=== PATIENT | female | born 2005 | race Caucasian/White ===

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

== ENCOUNTER 2024-02-26 17:38 | Emergency (ER) | payer MEDICAID, SELFPAY ==
[2024-02-26 17:39] VITALS: BP 140/78; PULSE 64; RESP 16; TEMP 36.1; O2SAT 100; BMI 21.9
--- NOTE | 2024-02-26 18:16 | EDS_ITS ---
HPI HPI - Female History of Present Illness Chief Complaint: Female C/O Narrative Narrative: Patient is a 18-year-old female with past medical history of bipolar disorder, anxiety, depression, personality disorder, seizure who presents to the Emergency Department chief complaint of lower abdominal pain. Patient states that she has a history of ovarian cysts and states that about 3 to 4 hours ago she developed pain over her ovaries. States that she did not take anything prior to evaluation. She states that her pain is currently a 7 out of 10 on each side. Patient denies any previous abdominal surgeries. Patient denies any possibility of as she states that she has a female partner and she has a IUD in place. [facility] Medical History Seizure disorder Personality disorder Bipolar disorder Anxiety and depression Home Medications ?Medication ?Instructions ?Recorded ?Last Taken ?Type propranolol 20 mg tablet 20 mg PO BID 10/03/19 Unknown History trazodone 50 mg tablet 75 mg PO QHS 10/03/19 Unknown History lisdexamfetamine 30 mg capsule 30 mg PO DAILY 03/18/22 Unknown History (Vyvanse) lithium carbonate 450 mg 300 mg PO BID 03/18/22 Unknown History tablet,extended release lamotrigine 25 mg tablet 100 mg PO Q12H 02/06/23 Unknown History Allergy/AdvReac Type Severity Reaction Status Date / Time ethosuximide (From Zarontin) Allergy Rash Verified 02/26/24 17:41 Surgical History History of tonsillectomy Social History Smoking Status: Current some day smoker tobacco type: cigarettes ROS ROS ED ROS Narrative Constitutional: Denies any fevers, chills, headaches, lightness, dizziness Eyes: Denies change in vision double vision blurry vision Cardiovascular: Denies chest pain or palpitations Respiratory: Denies coughing wheezing shortness of breath Abdomen: Complains of lower abdominal pain over her ovaries as noted above denies nausea vomit diarrhea : Denies painful urination, hematuria, polyuria, vaginal discharge Neurological: Denies any numbness, weakness, tingling Musculoskeletal: Denies back pain Skin: Denies rashes or lesions EXAM Physical Exam Narrative Exam Narrative: General: Patient lying in bed rest comfortably did not appear to be acute distress Head: Atraumatic, normocephalic Eyes: PERRL bilaterally, EOMI bilateral, no conjunctival injection noted Neck: Soft, supple, trachea midline Cardiovascular: Regular rate and rhythm Abdomen: Soft, nondistended, mild tenderness palpation over her right and left lower quadrants which is symmetric bilaterally, no rebound or guarding on exam Extremities: +5/5 strength noted in the bilateral upper and lower extremity, radial pulses +2/4 in the bilateral extremities, no pedal edema on exam Neurological: Patient following commands knew that she was at [facility] year is 2024 Skin: Warm, dry, intact no rashes or lesions noted Const Vital Signs: 02/26/24 17:39 02/26/24 19:38 Temperature 96.9 F L Temperature Source Temporal Pulse Rate 64 75 Respiratory Rate 16 18 Blood Pressure 140/78 H Blood Pressure Mean 98 Pulse Ox 100 97 Oxygen Delivery Method Room Air Room Air [facility] Narrative Medical decision making narrative: Patient is a 18-year-old female who presented to the emerged part with chief complaint of ovarian pain that started approximately 3 to 4 hours and she did not take anything for her pain prior to arrival. On the differential diagnose includes but not limited to ovarian cyst, UTI, , ectopic . Once workup is obtained reviewed she will be reevaluated. Patient be given Toradol. Patient CBC reviewed and showed no evidence leukocytosis white blood count normal at 10.4, hemoglobin stable 13.7, platelet count normal at 256. Patient sodium normal at 136, potassium normal at 3.7, creatinine normal at 0.74. Patient's AST and ALT were 11 and 25 respectively normal total bilirubin 0.50. Patient lipase normal at 23. Patient's urinalysis did not show any evidence of infection test was negative. Reevaluation the patient she states that she is having significant pressure still in her lower abdomen bilaterally over her ovaries therefore we will add a ultrasound on. Patient's ultrasound was reviewed which showed normal sonographic appearance of the uterus and endometrium with IUD in normal position. No abnormal fluid collections or abnormal blood flow. Hypoechoic area in the central portion of the right ovary measuring 2.5 x 1.8 x 2.0 cm. Hemorrhagic cyst versus endometrioma are considerations are recommending follow- up ultrasound approximately 6 to 12 weeks to assess stability. I did provide a hard copy of the result to the patient advised her to take this to her PERSONAL DEVELOPMENT EDUCATOR. Ultrasound approximately 6 to 12 weeks to assess stability. I did provide a hard copy of the result to the patient advised her to take this to her PERSONAL DEVELOPMENT EDUCATOR. Patient was advised to rotate Tylenol and ibuprofen [id number] and return with worsening symptoms or concerns. She is agreeable this plan as well as significant other at bedside all question concerns answered and she was discharged home in stable condition. Lab Data Labs: Laboratory Results - last 24 hr 02/26/24 02/26/24 18:12 18:22 WBC 10.4 RBC 4.43 Hgb 13.7 Hct 40.9 MCV 92.3 MCH 30.9 MCHC 33.5 RDW Std Deviation 43.3 RDW Coeff of Latha 12.8 Plt Count 256 MPV 10.9 Immature Gran % (Auto) 0.200 Neut % (Auto) 65.6 Lymph % (Auto) 23.8 Bucks % (Auto) 6.1 Eos % (Auto) 3.8 Baso % (Auto) 0.5 Absolute Neuts (auto) 6.8 Absolute Lymphs (auto) 2.47 Nucleated RBC % 0 Sodium 136 Potassium 3.7 Chloride 105 Carbon Dioxide 26.0 Anion Gap 5 BUN 10 Creatinine 0.74 Estim Creat Clear Calc 114.47 Est GFR (MDRD) Af Amer 129 Est GFR (MDRD) Non-Af 106 BUN/Creatinine Ratio 13.4 Glucose 94 Calcium 9.6 Total Bilirubin 0.50 AST 11 L ALT 25 Alkaline Phosphatase 76 Total Protein 7.7 Albumin 4.4 Globulin 3.3 Albumin/Globulin Ratio 1.3 Lipase 23 Urine Color Yellow Urine Clarity Sl. Cloudy Urine pH 7.0 Ur Specific [place] 1.010 Urine Protein Negative Urine Glucose (UA) Normal Urine Ketones Negative Urine Occult Blood Negative Urine Nitrite Negative Urine Bilirubin Negative Urine Urobilinogen Normal Ur Leukocyte Esterase 25 H Urine Test Negative Radiography Diagnostic Testing: Clinical Impression(s) from Imaging Studies Transvaginal US 02/26/24 19:58 IMPRESSION: 1. Normal sonographic appearance of the uterus and endometrium with IUD in normal position. No abnormal fluid collections or abnormal blood flow. 2. Hypoechoic area in the central portion of the RIGHT ovary measuring 2.5 x 1.8 x 2.0 cm. Hemorrhagic cyst versus endometrioma are considerations. Follow-up per the included consensus guidance. Consider follow-up ultrasound in approximately 6-12 weeks to assess stability. Incidental Findings Reference Guidance And Recommendations: Ovarian cyst: Based on consensus guidelines, nonspecific cystic ovarian lesions suggestive of but not classic for hemorrhagic cyst, endometrioma or dermoid should be evaluated with repeat ultrasound in 6-12 weeks. If unchanged, hemorrhagic cyst would be unlikely, and continued follow-up with ultrasound or pelvic MRI would be recommended. Surgical consultation could also be considered for lesions that remain uncharacterized, particularly in postmenopausal patients (Radiology: Vol 256: Oct 2009, [id number]). Electronically Signed: Armani Raza MD at 20:54 EST Reading Location ID and State: [facility] / [place] Tel , Service support , Discharge Plan Triage Chief Complaint: Female C/O ED Provider: Randal Saab Dx/Rx/DC Orders Clinical Impression: Abdominal pain, Ovarian cyst, right Prescriptions: No Action lamotrigine 25 mg tablet 100 mg PO Q12H Patient Comments: PLEASE SEE ATTACHED FOR DETAILED DIRECTIONS trazodone 50 MG tablet 75 mg PO QHS propranolol 20 MG tablet 20 mg PO BID lithium carbonate 450 mg tablet extended release 300 mg PO BID Patient Comments: TAKE 1 TABLET BY MOUTH TWICE A DAY lisdexamfetamine [Vyvanse] 30 mg capsule 30 mg PO DAILY Patient Comments: TAKE 1 CAPSULE BY MOUTH EVERY MORNING Primary Care Provider: Lucia Clinton Referrals: Lucia Clinton MD [Primary Care Provider] - Activity Restrictions/Additional Instructions: Take the ultrasound report to your PERSONAL DEVELOPMENT EDUCATOR for them to follow-up on the result that they are recommending approximately 6 to 12 weeks. Return for fevers, worsening pain, persistent vomiting not tolerating oral intake or any other concerns. Follow-up with your primary care physician as well. Rotate Tylenol and ibuprofen [id number] for pain control. Print Language: Kinyarwanda Disposition Disposition: Home, Self Care
[2024-02-26] MEDS: Ketorolac 15 MG/ML Vial IV ×2 (18:21→19:27)
[2024-02-26] MEDS: 0.9% Normal Saline (1000mL) 1,000 ML 999 ML IV (18:21)
[2024-02-26 18:31] LABS: Absolute Lymphocyte Count 2.47 X10^3/uL (0.83-4.51); Absolute Neutrophil Count 6.8 X10^3/uL (2.0-7.7); Basophil# 0.05 X10^3/uL; Basophil% 0.5 % (0-1); Eosinophil# 0.39 X10^3/uL; Eosinophils% 3.8 % (0-5); Hematocrit 40.9 % (37-47); Hemoglobin 13.7 g/dL (12.0-15.0); Lymphocyte # 2.47 X10^3/ul (0.83-4.51); Lymphocyte % 23.8 % (19-41); Mean Corp Hgb Conc 33.5 g/dL (32-36); Mean Corpuscular Hgb 30.9 pg (27.0-32.0); Mean Corpuscular Volume 92.3 fL (81-99); Mean Platelet Vol. 10.9 fl (6.2-12.0); Monocyte# 0.63 X10^3/uL; Monocyte% 6.1 % (0-10); NRBC Flagged by Analyzer 0 % (0-5); Neutrophil # 6.83 X10^3/uL (2.7-7.7); Neutrophil % 65.6 % (47-70); Platelet Count 256 K/mm3 (150-450); RBC Distribution Width CV 12.8 % (11.6-14.6); RBC Distribution Width SD 43.3 fl (35.1-43.9); Red Blood Count 4.43 M/mm3 (4.2-5.4); White Blood Count 10.4 K/mm3 (4.4-11.0)
[2024-02-26 18:35] LABS: Color, Urine Yellow (Yellow); Glucose, Dipstick Normal (Normal); Ketone-Dipstick Negative (Negative); Leukocyte Esterase-Dipstick 25 /ul (Negative); Nitrite-Dipstick Negative (Negative); Occult Blood-Urine Negative /ul (Negative); Protein-Dipstick Negative (Negative); Urine Bilirubin Dipstick Negative (Negative); Urine Clarity Sl. Cloudy (Clear); Urine Urobilinogen Normal (Normal)
[2024-02-26 18:36] LABS: ALB/GLOB Ratio 1.3 RATIO (0.9-2.4); AST(SGOT) 11 U/L (15-37); Alanine Aminotransfer ALT/SGPT 25 U/L (13-56); Albumin, Serum 4.4 g/dL (3.2-5.0); Alkaline Phosphatase 76 U/L (45-117); Anion Gap 5 (5-15); BUN 10 mg/dL (7-18); BUN/Creat Ratio 13.4 RATIO (10-20); Calcium,Total 9.6 mg/dL (8.5-10.1); Chloride 105 mmol/L (98-107); Creatinine, Serum 0.74 mg/dL (0.55-1.02); EST Glomerular Filtration Rate 106 mL/min (>60); Est Glom Filt Rate - Afr Amer 129 mL/min (>60); Estimated Creatinine Clearance 114.47 ml/min; Globulin 3.3 g/dL (2.2-4.2); Glucose 94 mg/dL (74-106); Lipase 23 U/L (13-75); Potassium 3.7 mmol/L (3.5-5.1); Protein, Total 7.7 g/dL (6.4-8.2); Sodium Level 136 mmol/L (136-145)
[2024-02-26 18:42] LABS: Internal QC Validated? YES +Cl - CLEAR BKGD; Pregnancy, Urine Negative Negative
[2024-02-26 19:38] VITALS: PULSE 75; RESP 18; O2SAT 97
--- NOTE | 2024-02-26 19:58 | US_ITS ---
INDICATION: ovarian pain EXAMINATION: Ultrasound US Transvaginal Non-OB TECHNIQUE: Transvaginal (for optimal evaluation of the adnexa) pelvic ultrasound was performed. Grayscale, spectral waveform, and color flow Doppler evaluation of the adnexa. COMPARISON: CT examination of 07/07/2016 FINDINGS: UTERUS: Anteverted. The uterus measures 5.9 x 4.0 x 2.4 cm. There is no uterine mass. The endometrial stripe measures 3 mm. IUD is noted in normal position. No abnormal fluid collections or abnormal blood flow RIGHT OVARY: 5.5 x 3.6 x 3.1 cm. Non-enlarged, normal echogenicity. There is normal arterial inflow and venous outflow present in the right ovary. There is a hypoechoic structure within the central portion of the RIGHT ovary measuring 2.5 x 1.8 x 2.0 cm. Hemorrhagic cyst versus endometrioma are considerations. No abnormal blood flow. LEFT OVARY: 3.0 x 1.9 x 1.9 cm. Non-enlarged, normal echogenicity. There is normal arterial inflow and venous outflow present in the left ovary. FREE FLUID: Small to moderate amount of free fluid in the cul-de-sac. US/Transvaginal Non- IMPRESSION: 1. Normal sonographic appearance of the uterus and endometrium with IUD in normal position. No abnormal fluid collections or abnormal blood flow. 2. Hypoechoic area in the central portion of the RIGHT ovary measuring 2.5 x 1.8 x 2.0 cm. Hemorrhagic cyst versus endometrioma are considerations. Follow-up per the included consensus guidance. Consider follow-up ultrasound in approximately 6-12 weeks to assess stability. Incidental Findings Reference Guidance And Recommendations: Ovarian cyst: Based on consensus guidelines, nonspecific cystic ovarian lesions suggestive of but not classic for hemorrhagic cyst, endometrioma or dermoid should be evaluated with repeat ultrasound in 6-12 weeks. If unchanged, hemorrhagic cyst would be unlikely, and continued follow-up with ultrasound or pelvic MRI would be recommended. Surgical consultation could also be considered for lesions that remain uncharacterized, particularly in postmenopausal patients (Radiology: Vol 256: Oct 2009, [id number]). Electronically Signed: Armani Raza MD at 20:54 EST ,
[2024-02-26 21:13] VITALS: BP 130/59; PULSE 61; RESP 16; O2SAT 98
[2024-02-26 21:17] VITALS: BP 130/59; PULSE 61; RESP 16; TEMP 36.6; O2SAT 98
== END 2024-02-26 21:19 | disposition home or self-care (01) ==
PROVIDERS: Emergency Provider Emergency Medicine; PCP Family Medicine; Visit Provider Emergency Medicine
DX: R10.31 Right lower quadrant pain (principal); F60.9 Personality disorder, unspecified; F31.9 Bipolar disorder, unspecified; G40.909 Epilepsy, unspecified, not intractable, without status epilepticus; R10.32 Left lower quadrant pain; N83.201 Unspecified ovarian cyst, right side; F41.9 Anxiety disorder, unspecified; Z97.5 Presence of (intrauterine) contraceptive device; Z79.899 Other long term (current) drug therapy; F17.210 Nicotine dependence, cigarettes, uncomplicated
CPT/HCPCS: 76830; 80053; 81002; 81025; 83690; 85025; 96361; 96374; 96376; 99283; A4216

== ENCOUNTER 2024-11-06 08:00 | Outpatient (RCR) | payer MEDICAID, SELFPAY ==
[2024-11-06 19:09] LABS: Lithium < 0.10 mmol/L (0.60-1.20)
[2024-11-06 19:23] LABS: AST(SGOT) 22 U/L (<=31); Alanine Aminotransfer ALT/SGPT 19 U/L (<=34); Albumin, Serum 4.7 g/dL (3.5-5.0); Alkaline Phosphatase 82 U/L (35-104); Anion Gap 12 (5-15); BUN 10 mg/dL (4-19); BUN/Creat Ratio 18.3 RATIO (10-20); Calcium,Total 9.5 mg/dL (7.6-11.0); Carbon Dioxide 25.1 mmol/L (21.0-32.0); Chloride 103 mmol/L (98-108); Globulin 2.6 g/dL (2.2-4.2); Glucose 79 mg/dL (70-99); Potassium 3.9 mmol/L (3.3-5.1)
== END 2024-11-10 23:59 ==
LOC: MFPLAB 08:00
PROVIDERS: PCP Family Medicine; Visit Provider Nurse Practitioner
DX: F31.9 Bipolar disorder, unspecified (principal); F90.2 Attention-deficit hyperactivity disorder, combined type; Z76.89 Persons encountering health services in other specified circumstances
CPT/HCPCS: 36415; 80053; 80178; 84443